=== PATIENT | male | born 1995 | race African-American/Black ===

== ENCOUNTER 2020-05-03 14:24 | Emergency (ER) | payer OTHER ==
[2020-05-03] MEDS ORDERED: EPINEPHrine 1 MG/ML AMP IM STA (14:40)
[2020-05-03] MEDS ORDERED: methylPREDNISolone SUCCINATE 125 MG/2 ML VIAL IVP STA (14:41)
[2020-05-03] MEDS ORDERED: diphenhydrAMINE INJ 50 MG/ML VIAL IVP STA (14:41)
[2020-05-03] MEDS ORDERED: FAMOTIDINE 20 MG/2 ML VIAL IVP STA (14:41)
[2020-05-03] MEDS ORDERED: ONDANSETRON 4 MG/2 ML VIAL IVP STA (14:42)
--- NOTE | 2020-05-03 14:43 | ED Physician Documentation ---
History of Present Illness - Stated complaint Stated Complaint: ALLERGIC REACTION - Chief complaint Chief Complaint: Allergic Rx - History obtained from History obtained from: Patient - Additonal information Additional information: 24-year-old man with allergy to peanuts presents after accidental ingestion of peanut butter cookie about an hour prior to arrival. He states that he became dizzy, nauseous and vomited (nbnb), has lip swelling and sensation of tightening in the throat, shortness of breath, and full body warmth and rash to the face, trunk, back. prior to this he had been feeling normal. Review of Systems Ten Systems: 10 systems reviewed and negative Constitutional: denies: Fever, Chills Throat: reports: Other (throat tightness) Cardiac: denies: Chest pain / pressure Respiratory: reports: Dyspnea GI: reports: Nausea, Vomiting Skin: reports: Rash Musculoskeletal: denies: Extremity swelling Neurologic: reports: Other (lightheadedness) PD PAST MEDICAL HISTORY - Present Medications Home Medications: Ambulatory Orders Medication Instructions Recorded Confirmed EPINEPHrine [Epinephrine] 0.3 mg IJ ONCE PRN #2 auto.injct 05/03/20 - Allergies Allergies/Adverse Reactions: Allergies Allergy/AdvReac Type Severity Reaction Status Date / Time nut - unspecified Allergy Severe Anaphylaxis Verified 05/03/20 14:45 PD ED PE NORMAL - Vitals Vital signs reviewed: Yes - General General: Alert and oriented X 3 - HEENT HEENT: Atraumatic, PERRL, EOMI, Other (+facial swelling and fine erythematous rash. mild soft tissue swelling to posterior oropharynx.) - Neck Neck: Other ( normal upper airway sounds on neck auscultation. no stridor) - Cardiac Cardiac: RRR - Respiratory Respiratory: No respiratory distress, Clear bilaterally - Abdomen Abdomen: Non tender, Non distended, Other (diffuse erythematous rash) - Male Male : Deferred - Rectal Rectal: Deferred - Back Back: Other (diffuse erythematous rash) - Derm Derm: Other (diffuse rash to trunk, back and face) - Extremities Extremities: No deformity - Neuro Neuro: Alert and oriented X 3 - Psych Psych: Normal mood, Normal affect Results - Vitals Vitals: Vital Signs - 24 hr 05/03/20 05/03/20 05/03/20 14:35 14:47 15:10 Temperature 36.6 C 36.6 C Heart Rate 102 H 90 76 Respiratory 10 L 18 18 Rate Blood Pressure 152/82 H 152/82 H 132/70 H O2 Saturation 99 100 100 05/03/20 05/03/20 15:30 16:00 Temperature 36.5 C Heart Rate 80 86 Respiratory 14 18 Rate Blood Pressure 136/67 H 125/73 O2 Saturation 99 98 Oxygen O2 Source Room air PD MEDICAL DECISION MAKING - ED course ED course: Patient presented with multisystem allergic reaction concerning for anaphylaxis. 2:40pm- IM epi given. 2:55 pm - nausea improving. soft tissue swelling nonworsening. patient sitting up in bed in NAD, breathing normally. repeat lung and upper airway exam nonfocal. 3:30 pm- symptoms completely resolved. 5pm - patient still asymptomatic. anaphylaxis emergency action plan discussed. script for epipen given. patient will f/u with allergy immunology. Departure - Departure Disposition: 01 Home, Self Care Clinical Impression: Anaphylaxis, Nausea and vomiting, Throat tightness, Rash Condition: Good Instructions: Anaphylaxis Ch Prescriptions: EPINEPHrine [Epinephrine] 0.3 mg IJ ONCE PRN #2 auto.injct PRN Reason: Anaphylaxis Comments: Please follow up with allergy immunology this week. Return to the ED for any new or worsening symptoms. Keep your epipen on you at all times. Larry Cazares MD [email or web address] [id number] [place] [address], [address] [place] [address]
[2020-05-03] MEDS ORDERED: EPINEPHrine 1 MG/ML AMP ONE (14:47)
[2020-05-03 17:21] VITALS: BP 129/71
== END 2020-05-03 17:21 | disposition home or self-care (01) ==
LOC: ED 14:24
DX: T78.01XA Anaphylactic reaction due to peanuts, initial encounter (principal); R21 Rash and other nonspecific skin eruption; R22.0 Localized swelling, mass and lump, head; R11.2 Nausea with vomiting, unspecified; Z91.010 Allergy to peanuts
CPT/HCPCS: 96372; 96374; 96375; 99283; 99284; J1200